=== PATIENT | female | born 1980 ===

== ENCOUNTER 2018-10-26 15:54 | Emergency (ER) | payer OTHER ==
[2018-10-26 16:54] VITALS: BP 129/67; PULSE 69; RESP 18; TEMP 98; O2SAT 100
--- NOTE | 2018-10-26 18:00 | ED PDOC ---
HPI: Back Time Seen by Provider: 10/26/18 17:15 Chief Complaint (Nursing): Back Pain Chief Complaint (Provider): Neck pain, low back pain History Per: Patient History/Exam Limitations: no limitations, language barrier (kevin [id number]) Onset/Duration Of Symptoms: Intermittent Episodes, Persistent (x 2 weeks) Current Symptoms Are (Timing): Still Present Associated Symptoms: None Exacerbating Factor(s): Turning, Movement Additional History Per: Patient Additional Complaint(s): 38yo female, otherwise well, comes to ER reporting posterior headache/neck pain x 2 weeks, and lower back pain for greater than 2 weeks. She reports the back pain radiates down to her bilateral knees with walking at times. Otherwise, no fever, chills, neck stiffness, weakness, numbness, vision changes, bowel/bladder dysfunction. Patient denies any trauma, injury, or heavy lifting. No additional complaints. PMD: Clinic Past Medical History Reviewed: Historical Data, Nursing Documentation, Vital Signs Vital Signs: Last Vital Signs Temp 98 F 10/26/18 16:52 Pulse 69 10/26/18 16:52 Resp 18 10/26/18 16:52 BP 129/67 10/26/18 16:52 Pulse Ox 100 10/26/18 16:52 - Medical History PMH: No Chronic Diseases - Surgical History Surgical History: No Surg Hx - Family History Family History: States: Unknown Family Hx - Home Medications Home Medications: Ambulatory Orders Medication Instructions Recorded Tramadol HCl [Ultram] 50 mg PO Q6 #15 tab 01/08/16 Cyclobenzaprine [Cyclobenzaprine 10 mg PO TID PRN #12 tab 10/26/18 HCl] Naproxen 500 mg PO BID PRN #20 tab 10/26/18 - Allergies Allergies/Adverse Reactions: Allergies Allergy/AdvReac Type Severity Reaction Status Date / Time No Known Allergies Allergy Verified 10/26/18 16:52 Review of Systems ROS Statement: Except As Marked, All Systems Reviewed And Found Negative Eyes: Negative for: Vision Change Musculoskeletal: Positive for: Neck Pain, Back Pain Neurological: Positive for: Headache. Negative for: Weakness, Numbness Physical Exam - Reviewed Nursing Documentation Reviewed: Yes Vital Signs Reviewed: Yes - Physical Exam Comments: GENERAL APPEARANCE: Patient is awake, alert, oriented x 3, in no acute distress. SKIN: Warm, dry; (-) cyanosis. EYES: (-) conjunctival pallor. ENMT: Mucous membranes moist. NECK: (+) paracervical tenderness, left > right, (-) stiffness, (-) lymphadenopathy. (+) FROM flexion and extension of neck. CHEST AND RESPIRATORY: (-) rales, (-) rhonchi, (-) wheezes; breath sounds equal bilaterally. HEART AND CARDIOVASCULAR: (-) irregularity; (-) murmur, (-) gallop. ABDOMEN AND GI: Soft; (-) tenderness; (-) palpable mass. BACK: (+) midline tenderness to L4/L5 to S1; paralumbar tenderness, left > right. (+) FROM of back (-) deformity. Straight leg raising (-) bilaterally. EXTREMITIES: (-) deformity. Distal pulses good bilaterally. NEURO AND PSYCH: Mental status as above. Intact sensation bilaterally; normal strength in extension of the knees, plantar and dorsiflexion of the toes. DTRs symmetric. - ECG O2 Sat by Pulse Oximetry: 100 (RA) Pulse Ox Interpretation: Normal Medical Decision Making Medical Decision Making: Neck and back pain, likely musculoskeletal Plan: -- XR lumbar spine -- Toradol 30mg IM -- UPreg -- pt with her young child here, will not give muscle relaxer, will give Rx for home 1924 XR Lumbar Spine: no fracture, no dislocation; degenerative disk disease and small osteophyte noted L4 as read by PA. Patient advised that official radiology read of XR is still pending and will call the patient if there is any discrepancy within 24 hours. If XR reports are not in by the time the patient is dc, include: Patient advised that official radiology read of XR is still pending and will call the patient if there is any discrepancy within 24 hours. on re eval pt is feeling better and ready to go home, pt is neurologically intact, normal steady gait will give Rx for flexeril discussed results, diagnosis, treatment, return precautions and f/u with pt who is understanding, in agreement and stable for dc Scribe Attestation: Documented by Nakita Cuenca, acting as a scribe for MATEUS Krause. Provider Scribe Attestation: All medical record entries made by the Scribe were at my direction and personally dictated by me. I have reviewed the chart and agree that the record accurately reflects my personal performance of the history, physical exam, medical decision making, and the department course for this patient. I have also personally directed, reviewed, and agree with the discharge instructions and disposition. Disposition - Clinical Impression Clinical Impression: Low back pain, Muscle spasms of neck - Patient ED Disposition Is Patient to be Admitted: No Counseled Patient/Family Regarding: Studies Performed, Diagnosis, Need For Followup, Rx Given - Disposition Referrals: [facility] [Outside] [facility] [Outside] Disposition: Routine/Home Disposition Time: 20:06 Condition: IMPROVED Additional Instructions: Return to ED for new or worsening symptoms, fever >100.4, urinary or bowel incontinence, unable to walk, numbness or tingling. Follow up with your primary doctor or the clinic as listed in 3-5 days. take medications as prescribed. Do not drive or drink alcohol when taking flexeril. Rest, avoid heavy lifting or s trenuous activity for one week. Use heating pads and hot showers to soothe muscles Regrese a la ED para sntomas nuevos o que empeoran, fiebre> 100.4, incontinencia urinaria o intestinal, incapacidad para caminar, entumecimiento u hormigueo. Ezekiel un seguimiento con saul mdico de cabecera o la clnica mally se indica en 3-5 [place]. yadira los medicamentos segn lo prescrito. No conduzca ni davis alcohol cuando est tomando flexeril. Descanse, evite levantar objetos pesados ??o realizar actividades extenuantes sandhya emory semana. Use almohadillas trmicas y duchas calientes para calmar los msculos. Prescriptions: Cyclobenzaprine [Cyclobenzaprine HCl] 10 mg PO TID PRN #12 tab PRN Reason: Muscle Spasm Naproxen 500 mg PO BID PRN #20 tab PRN Reason: Pain, Moderate (4-7) Instructions: Low Back Pain in Adults, Muscle Spasms (DC) Forms: [employer] [facility] ([place]ian), [facility] ED School/Work Excuse Print Language: CITIZEN OF [place] - POA Present On Arrival: None
--- NOTE | 2018-10-27 12:12 | RAD ---
Date of service: 10/26/2018 PROCEDURE: Radiographs of the Lumbar Spine. HISTORY: low back pain COMPARISON: No prior. TECHNIQUE: 3 views obtained. FINDINGS: BONES: There is normal alignment of the lumbar vertebral bodies. There is normal lumbar lordosis. There is no acute fracture, spondylolysis or spondylolisthesis. Bone mineralization is normal. DISC SPACES: The disc heights are maintained. OTHER FINDINGS: None. IMPRESSION: No acute fracture, spondylolysis or spondylolisthesis.
== END 2018-10-26 20:19 | disposition home or self-care (01) ==
LOC: H.ER 15:54
DX: M54.5 Low back pain (principal); M54.2 Cervicalgia
CPT/HCPCS: 72100; 81025; 96372; 99283; J1885